=== PATIENT | female | born 1975 | race Caucasian/White ===

== ENCOUNTER 2017-12-05 16:29 | Inpatient (IN) | payer OTHER ==
[~2017-12-05] VITALS: Ht 157.5 cm; Wt 79.8 kg
[2017-12-05 16:46] VITALS: BP 101/66
--- NOTE | 2017-12-05 22:30 | NUR ---
PATIENT AMBULATED TO ER BED 2
--- NOTE | 2017-12-05 22:45 | NUR ---
42/F c/o abscess to labia since approximately 11/21/17. Pt has hx of abscess to labia. Pt reports the abscess progressively getting worse, more painful and firmer. Denies any painful or difficulty urinating. No open wound to labia, no drainage noted. AOX4, clear speech, ambulatory with a cane, steady gait. No vaginal bleeding. VSS.
--- NOTE | 2017-12-05 22:54 | NUR ---
Dr. Downing at bedside.
--- NOTE | 2017-12-05 22:55 | NUR ---
FEMALE CHAPERONED FOR DR. BARRETT DURING PATIENT EXAM
[2017-12-05] MEDS ORDERED: NACL 0.9% 1,000 ML IV ONE (23:00)
[2017-12-05] MEDS ORDERED: INSULIN HUMAN REGULAR 100 UNITS/ML 10 ML VIAL IVP ONE (23:00)
[2017-12-05] MEDS ORDERED: MORPHINE SULFATE 4 MG/ML SYR IVP ONE (23:00)
[2017-12-05] MEDS ORDERED: metroNIDAZOLE 500 MG/NS PREMIX 100 ML IV ONE (23:00)
[2017-12-05] MEDS ORDERED: LORazepam 2 MG/ML VIAL IVP PRN (23:15)
[2017-12-05] MEDS ORDERED: DEXTROSE 50% 50 ML SYR IVP PRN (23:15)
[2017-12-05] MEDS: NACL 0.9% 1,000 ML IV SCH (23:15)
[2017-12-05] MEDS ORDERED: ONDANSETRON 4 MG/2 ML VIAL IVP PRN (23:15)
[2017-12-05 23:31] LABS: BASOPHILS # (AUTO) 0.1 K/uL (0.00-0.22); BASOPHILS % (AUTO) 0.7 % (0.0-2.0); EOSINOPHILS # (AUTO) 0.2 K/uL (0-0.4); EOSINOPHILS % (AUTO) 1.3 % (0.0-4.0); HEMOGLOBIN 12.1 g/dL (12.0-16.0); LYMPHOCYTES # (AUTO) 1.3 K/uL (2.5-16.5); MEAN CORPUSCULAR HEMOGLOBIN 28 pg (27-31); MEAN CORPUSCULAR HGB CONC 33 g/dL (33-37); MEAN CORPUSCULAR VOLUME 84 fL (80-94); MONOCYTES # (AUTO) 0.6 K/uL (0.8-1.0); MONOCYTES % (AUTO) 3.8 % (1.7-9.3); NEUTROPHILS # (AUTO) 12.8 K/uL (1.8-7.7); NEUTROPHILS % (AUTO) 85.7 % (42.2-75.2); PLATELET COUNT (AUTO) 249 K/uL (140-450); RED CELL DISTRIBUTION WIDTH 11.8 % (11.6-13.7)
[2017-12-05] MEDS ORDERED: INSU100S5 IJ (23:40)
[2017-12-05] MEDS ORDERED: LISI2.5T12 PO (23:40)
[2017-12-05] MEDS ORDERED: INSU100S22 SUBQ (23:40)
[2017-12-05] MEDS ORDERED: GABA300C PO (23:40)
[2017-12-05 23:45] LABS: LYMPHOCYTES % (AUTO) 8.5 % (20.5-51.1)
[2017-12-05 23:47] LABS: ALBUMIN 3.2 g/dL (3.4-5.0); ANION GAP 17.1 (8-16); CARBON DIOXIDE 22.5 mmol/L (21-32); CREATININE 1.3 mg/dL (0.6-1.3); POTASSIUM 3.6 mmol/L (3.5-5.1); TOTAL BILIRUBIN 0.4 mg/dL (0.0-1.0)
[2017-12-06 00:35] VITALS: BP 124/73
--- NOTE | 2017-12-06 00:35 | NUR ---
RECEIVED PATIENT FROM ER. PATIENT AMBULATORY FROM [facility] TO BED. PATIENT AMBULATES WITH CANE. PATIENT DENIES PAIN. IV SITE PATENT AND INTACT. PATIENT A&OX4. NO SIGNS OR SYMPTOMS OF ACUTE DISTRESS NOTED. PATIENT ORIENTED TO UNIT. SAFETY MEASURES ENSURED. FALL PROTOCOL IN PLACE. WILL CONTINUE TO MONITOR.
--- NOTE | 2017-12-06 00:38 | NUR ---
Pt transferred to Med/Surg 119-A via gurney accompanied by EMT Devon and myself. All belongings sent with patient in belongings bag. Pt sent with IV fluids infusing.
[2017-12-06 00:42] LABS: APPEARANCE,URINE SL CLOUDY (CLEAR); BILIRUBIN,URINE NEGATIVE (NEGATIVE); BLOOD, URINE TRACE-I (NEGATIVE); COLOR,URINE YELLOW (YELLOW); LEUKOCYTE ESTERASE ,URINE NEGATIVE (NEGATIVE); NITRITE, URINE NEGATIVE (NEGATIVE); PH,URINE 5.5 (5.0-9.0); UGLUCOSE 3+ (NEGATIVE)
[2017-12-06 00:56] LABS: RBC,URINE 3-10 (FEW) /HPF (0-5); WBC,URINE 0-5 (RARE) /HPF (0-5); YEAST,URINE Many /HPF (None Seen)
[2017-12-06] MEDS: MORPHINE SULFATE 4 MG/ML SYR IVP PRN ×3 (02:24→16:38)
[2017-12-06] MEDS: NACL 0.9% 1,000 ML IV SCH ×2 (02:40→19:20)
--- NOTE | 2017-12-06 02:54 | NUR ---
PATIENT RESTING IN BED. NO SIGNS OR SYMPTOMS OF ACUTE DISTRESS NOTED. CALL LIGHT WITHIN REACH. WILL CONTINUE TO MONITOR.
[2017-12-06] MEDS ORDERED: PNEUMOCOCCAL VACCINE 23 MCG/0.5 ML VIAL IMVAC PRN (03:00)
[2017-12-06] MEDS ORDERED: INFLUENZA VIRUS VACCINE QUAD 0.5 ML SYR IMVAC PRN (03:00)
[2017-12-06] MEDS: BLOOD GLUCOSE MONITORING 1 DEV DEV FS SCH ×4 (06:30→21:26)
--- NOTE | 2017-12-06 07:21 | NUR ---
ENDORSED PLAN OF CARE TO AM RN. PATIENT IN STABLE CONDITION.
--- NOTE | 2017-12-06 07:25 | NUR ---
RECEIVED REPORT FROM COMMUNICATIONS PROFESSIONAL NURSE, PT IS A/OX4, AMBULATES WITH CANE, PT IS BLIND, PT HAS IV ON THE RIGHT AC, PATENT, INTACT, FLUSHING WELL, NO S/S OF RESPIRATORY DISTRESS OR DISCOMFORT NOTED, DISCUSSED PLAN OF CARE WITH PT, PT VERBALIZED UNDERSTANDING, SAFETY/FALL PRECAUTIONS ARE IN PLACE, CALL LIGHT IS WITHIN REACH, WILL CONTINUE TO MONITOR.
[2017-12-06 07:58] LABS: BASOPHILS # (AUTO) 0.1 K/uL (0.00-0.22); BASOPHILS % (AUTO) 0.7 % (0.0-2.0); EOSINOPHILS # (AUTO) 0.4 K/uL (0-0.4); EOSINOPHILS % (AUTO) 2.6 % (0.0-4.0); HEMATOCRIT 33.1 % (36-48); HEMOGLOBIN 11.1 g/dL (12.0-16.0); LYMPHOCYTES # (AUTO) 1.6 K/uL (2.5-16.5); LYMPHOCYTES % (AUTO) 10.8 % (20.5-51.1); MEAN CORPUSCULAR HEMOGLOBIN 28 pg (27-31); MEAN CORPUSCULAR HGB CONC 34 g/dL (33-37); MEAN CORPUSCULAR VOLUME 83 fL (80-94); MONOCYTES # (AUTO) 0.7 K/uL (0.8-1.0); MONOCYTES % (AUTO) 4.5 % (1.7-9.3); NEUTROPHILS # (AUTO) 11.9 K/uL (1.8-7.7); NEUTROPHILS % (AUTO) 81.4 % (42.2-75.2); PLATELET COUNT (AUTO) 240 K/uL (140-450); RED BLOOD CELL COUNT(AUTO) 3.98 MIL/uL (4.20-5.40); RED CELL DISTRIBUTION WIDTH 11.9 % (11.6-13.7); WHITE BLOOD COUNT (AUTO) 14.7 K/uL (4.8-10.8)
[2017-12-06 08:00] VITALS: BP 97/62
[2017-12-06 08:29] LABS: ANION GAP 14.2 (8-16); CARBON DIOXIDE 23.1 mmol/L (21-32); CREATININE 0.9 mg/dL (0.6-1.3); POTASSIUM 3.3 mmol/L (3.5-5.1)
[2017-12-06] MEDS: MORPHINE SULFATE 2 MG/ML SYR IVP PRN ×2 (09:03→21:02)
[2017-12-06] MEDS: ENOXAPARIN 30 MG/0.3 ML SYR SUBQ SCH (09:07)
[2017-12-06] MEDS ORDERED: FLUCONAZOLE 100 MG TAB PO SCH (09:30)
[2017-12-06] MEDS ORDERED: POTASSIUM CHLORIDE 10 MEQ TABER PO SCH (09:30)
--- NOTE | 2017-12-06 10:20 | NUR ---
PT RESTING IN BED, TALKING ON HER CELL PHONE, CALL LIGHT IS WITHIN REACH.
[2017-12-06] MEDS ORDERED: BLOOD GLUCOSE MONITORING 1 DEV DEV FS STA (10:25)
[2017-12-06] MEDS: LEVOFLOXACIN 750 MG/D5W PREMIX 150 ML IV SCH (10:30)
[2017-12-06] MEDS: INSULIN LISPRO SLIDING SCALE 100 UNITS/ML VIAL SUBQ PRN ×2 (10:36→13:32)
--- NOTE | 2017-12-06 10:46 | NUR ---
PATIENT HAS BEEN SCREENED AND CATEGORIZED HIGH NUTRITION RISK. PATIENT WILL BE SEEN WITHIN 1-2 DAYS OF ADMISSION. 12/06/17 - 12/07/[address]
[2017-12-06] MEDS: metroNIDAZOLE 500 MG/NS PREMIX 100 ML IV SCH ×2 (12:30→21:01)
--- NOTE | 2017-12-06 15:16 | NUR ---
CM NOTE INITIAL REVIEW FAXED TO [facility] [phone] ALEX # [phone]
[2017-12-06 16:00] VITALS: BP 96/69
--- NOTE | 2017-12-06 19:15 | NUR ---
ENDORSED PT TO GENERAL ACCOUNTANT NURSE FOR CONTINUITY OF CARE, PT STABLE AT THIS TIME.
--- NOTE | 2017-12-06 19:16 | NUR ---
RECD. RESTING IN BED, AWAKE, A/OX4, RESPIRATION EVEN AND UNLABORED. IV OF NS AT 100ML/HR INFUSING, RIGHT AC G20. WATCHING TV. PLAN OF CARE FOR THE SHIFT DISCUSSED. VERBALIZED UNDERSTANDING. PAIN IN THE ABSCESS 12/07, WILL CALL NURSE WHEN PAIN INCREASES. NPO PAST MIDNIGHT. ON IV ANTIBIOTICS.
[2017-12-06] MEDS ORDERED: NICOTINE TRANSD SYS 14 MG/24 HR PATCH TD SCH (21:50)
[2017-12-07] VITALS: BP 124/75
[2017-12-07] MEDS: MORPHINE SULFATE 2 MG/ML SYR IVP PRN (01:32)
[2017-12-07] MEDS: NACL 0.9% 1,000 ML IV SCH ×2 (05:15→15:15)
[2017-12-07 08:00] VITALS: BP 115/69
[2017-12-07] MEDS: ENOXAPARIN 30 MG/0.3 ML SYR SUBQ SCH (09:00)
[2017-12-07] MEDS ORDERED: NICOTINE TRANSD SYS 14 MG/24 HR PATCH TD SCH (09:00)
[2017-12-07] MEDS: LEVOFLOXACIN 750 MG/D5W PREMIX 150 ML IV SCH (09:30)
--- NOTE | 2017-12-07 09:53 | NUR ---
ALL AM SCHEDULED MEDICATIONS CHARTED ON PAPER AND IN CHART D/T [facility] NOT WORKING. PATIENT WAS GIVEN MORNING MEDICATIONS. PATIENT LOVENOX 30MG SQ WAS GIVEN D/T PATIENT SURGERY BEING CANCELLED. ALL NEEDS MET AT THIS TIME.
--- NOTE | 2017-12-07 10:25 | NUR ---
WOUND CARE EVALUATION NOTE: REASON FOR WOUND EVALUATION: LABIA CELLULITIS COMPLETE SKIN ASSESSMENT DONE ON THIS 42 Y/O FEMALE PATIENT FROM HOME TO [facility], WITH INITIAL DIAGNOSIS OF C/O PAIN AND SWELLING FROM LABIA. PAST MEDICAL HISTORY INCLUDE HX OF LABIA I&D, DM. ALL ABOVE INFORMATION WAS OBTAINED FROM THE ADMISSION H&P AND PT. PT IS AAX4. LABS ARE WBC 14.7, H/H 11.1/33.1, GLUCOSE 311, ALBUMIN 3.2 PT/INR 10.8/1.0 AND PTT 27.4 CURRENT MEDS INCLUDE METRONIDAZOLE, LEVOFLOXACIN, INSULIN AND LORAZEPAM. PT SKIN IS WARM AND DRY TO TOUCH, BLE NO EDEMA, NO HAIR GROWTH, PEDAL PULSES PRESENT AND NORMAL,BILATERAL HEELS THICK CALLUS, CAPILLARY REFILLED < 2 SEC. PLAN OF CARE DISCUSS WITH PT. AND PRIMARY RN, PT. VERBALIZES UNDERSTANDS. INTEGUMENTARY: -LEFT LABIA MAJOR [id number] SKIN INTACT, SWELLING, TENDER AND PAINFUL TO TOUCH, PAIN LEVEL 3/10 -LEFT HEEL 2X0.2 CM DEPTH UTD, BROWN SCAB DIABETIC ULCER, DRYNESS WITH THICK CALLUS SURROUNDING THE SCAB -RIGHT TOE 0.5X0.5 CM DEPTH UTD, DIABETIC ULCER WOUND BED LIGHT BROWN ,DRY, NO ODOR RECOMMENDATIONS: -CLEANSE PERINEUM AREA WITH SOAP AND WATER , PAT DRY, APPLY WARM COMPRESS BID WC -CLEANSE LEFT HEEL AND RIGHT TOE DIABETIC ULCERS WITH NS. PAT DRY,PAINT WITH BETADINE SOLUTION QD AND LEAVE IT OPEN TO AIR -KEEP SKIN CLEAN AND DRY AT ALL TIMES. -PT TO ARRANGE AND FOLLOW UP OUTPATIENT PODIATRY VISIT RECOMMENDATIONS DISCUSSED WITH PRIMARY RN AND DR. IVERSON WILL FOLLOW UP PATIENT PRN. PLEASE CONTACT WOUND CARE NURSE FOR ANY QUESTIONS AND CHANGES IN WOUND CONDITION.
[2017-12-07 10:54] LABS: ALBUMIN 2.5 g/dL (3.4-5.0); ANION GAP 16.3 (8-16); CARBON DIOXIDE 20.6 mmol/L (21-32); CREATININE 0.8 mg/dL (0.6-1.3); POTASSIUM 3.9 mmol/L (3.5-5.1); TOTAL BILIRUBIN 0.5 mg/dL (0.0-1.0)
[2017-12-07] MEDS: BLOOD GLUCOSE MONITORING 1 DEV DEV FS SCH ×2 (11:30→16:30)
--- NOTE | 2017-12-07 11:50 | NUR ---
SPOKE WITH DR IVERSON REGARDING PATIENT TO HAVE DIET, DR SORENSENED [facility] DIET D/T PATIENT NOT HAVING SURGERY TODAY.
[2017-12-07] MEDS: metroNIDAZOLE 500 MG/NS PREMIX 100 ML IV SCH (12:55)
[2017-12-07] MEDS: INSULIN LISPRO SLIDING SCALE 100 UNITS/ML VIAL SUBQ PRN (12:57)
--- NOTE | 2017-12-07 12:58 | NUR ---
ADMINISTERED SCHEDULED MEDICATIONS. BS IS 244 INSULIN COVERAGE PER PROTOCOL WAS GIVEN 4 UNITS OF HUMALOG SQ ON THE RIGHT UPPER ARM. ALL NEEDS MET AT THIS TIME.
[2017-12-07] MEDS: MORPHINE SULFATE 4 MG/ML SYR IVP PRN (13:23)
[2017-12-07 13:33] LABS: HEMATOCRIT 33.7 % (36-48); HEMOGLOBIN 11.1 g/dL (12.0-16.0); MEAN CORPUSCULAR HEMOGLOBIN 28 pg (27-31); MEAN CORPUSCULAR HGB CONC 33 g/dL (33-37); MEAN CORPUSCULAR VOLUME 83 fL (80-94); RED BLOOD CELL COUNT(AUTO) 4.05 MIL/uL (4.20-5.40); WHITE BLOOD COUNT (AUTO) 15.7 K/uL (4.8-10.8)
[2017-12-07 13:34] LABS: PLATELET COUNT (AUTO) 264 K/uL (140-450); RED CELL DISTRIBUTION WIDTH 11.9 % (11.6-13.7)
[2017-12-07 13:35] LABS: BASOPHILS # (AUTO) 0.2 K/uL (0.00-0.22); BASOPHILS % (AUTO) 1.4 % (0.0-2.0); EOSINOPHILS # (AUTO) 0.1 K/uL (0-0.4); EOSINOPHILS % (AUTO) 0.9 % (0.0-4.0); LYMPHOCYTES % (AUTO) 6.5 % (20.5-51.1); MONOCYTES # (AUTO) 0.6 K/uL (0.8-1.0); MONOCYTES % (AUTO) 3.9 % (1.7-9.3); NEUTROPHILS # (AUTO) 13.8 K/uL (1.8-7.7); NEUTROPHILS % (AUTO) 87.3 % (42.2-75.2)
--- NOTE | 2017-12-07 13:55 | NUR ---
PATIENT STATED 7/10 LABIA PAIN, AND INDICATED THAT PAIN PRN MED DOES NOT HELP VERY MUCH. PATIENT WAS ASKED AGAIN IF SHE WOULD LIKE ANOTHER PAIN MEDICATION. PATIENT STATED SHE WILL LET RN KNOW IF SHE WOULD LIKE TO ASK DR FOR ANOTHER FORM OF PAIN MEDICATION. PATIENT WAS GIVEN COMFORT MEASURES, REPOSITIONED, AND LIGHTS WERE TURNED OFF. ALL NEEDS MET AT THIS TIME.
--- NOTE | 2017-12-07 14:06 | NUR ---
CM NOTE CONCURRENT REVIEW FAXED TO [facility] [phone] ALEX # [phone]
--- NOTE | 2017-12-07 15:09 | NUR ---
12/07/2017 RD INITIAL ASSESSMENT COMPLETED 1. PT TO CONSUME >75% ESTIMATED ENERGY AND PROTEIN NEEDS. 2. PT TO CONTINUE WITH 60 GM CCHO DIET WITH GOOD TOLERANCE DIETITIAN WILL MONITOR PO INTAKE, NUTRITION-RELATED LABS TRENDING WNL, SKIN INTEGRITY, WEIGHTS, GI FUNCTION. DISCHARGE PLAN:CURRENT DIET REFLECTS PAST MEDICAL HISTORY AND IS APPROPRIATE FOR DISCHARGE. ANTOINE SANDERS RD
[2017-12-07 16:00] VITALS: BP 104/65
--- NOTE | 2017-12-07 17:37 | NUR ---
PATIENT C/O LEFT SIDED CHEST PAIN THAT RADIATED TO BACK, OFFERED PRN PAIN MEDICATION HOWEVER PATIENT REFUSED AT THIS TIME. DR REHMAN WAS PAGED.
--- NOTE | 2017-12-07 17:45 | NUR ---
DR REHMAN CALLED BACK AND WAS NOTIFIED OF PATIENT C/O LEFT SIDED CHEST PAIN THAT RADIATED TO BACK, DR IS AWARE PATIENT REFUSED PRN PAIN MEDICATION. IS TO PLACE ORDERS.
[2017-12-07] MEDS ORDERED: NITROGLYCERIN 0.4 MG TAB SL PRN (17:55)
--- NOTE | 2017-12-07 18:45 | NUR ---
PATIENT SHOWS NO S/S OF ACUTE DISTRESS AT THIS TIME, FAMILY AT BEDSIDE.
--- NOTE | 2017-12-07 19:15 | NUR ---
GAVE PATIENT REPORT AT BEDSIDE TO NIGHT NURSE. PATIENT ENDORSED IN STABLE CONDITION.
--- NOTE | 2017-12-07 19:16 | NUR ---
RECD. RESTING IN BED, AWAKE, A/OX4. RESPIRATION EVEN AND UNLABORED. IV OF NS AT 100 ML/HR INFUSING, RIGHT AC G20. VERBALIZED FRUSTRATION THAT I & D WAS NOT DONE. STATED THIS IS THE SECOND TIME SHE HAD THIS ABSCESS AND DURING THE FIRST TIME, IN [facility] IT WAS OPENED TO HEAL. EXPLAINED THAT THE PLAN IS TO TREAT IT WITH ANTIBIOTICS. SHOWED HER AREA OF ABSCESS AND STATED "LOOK IT IS GETTING BIGGER AND FEEL IT, GETTING HARDER. ADVISED TO SPEAK WITH DR. IVERSON TOMORROW DURING HIS ROUNDS. AGREED. PAIN IN THE AREA 12/07, WILL MEDICATE ORDERED.
--- NOTE | 2017-12-07 20:30 | NUR ---
SANDWICH FOR SNACK WAS GIVEN REQUESTED.
--- NOTE | 2017-12-07 21:00 | NUR ---
WENT TO PATIENT'S ROOM AND FOUND ALREADY DRESSED IN PANTS WITH JACKET ON AND ALREADY CARRYING ALL HER BELONGINGS IN A BAG, READY TO WALK OUT OF THE ROOM WITH A CANE. WHEN ASKED WHERE IS SHE GOING STATED "I WILL GO TO [facility]." EXPLAINED THAT SHE HAS TO SIGN AMA PAPERS BUT REFUSED TO SIGN.
--- NOTE | 2017-12-07 21:05 | NUR ---
FOLLOWED PATIENT WALKING OUT OF THE ROOM, ADVISED TO STOP FOR A WHILE TO TAKE OUT IV LINE BUT STATED "I TOOK IT OUT, IT'S ON THE FLOOR". CONTINUED WALKING, REQUESTED WIND [employer]URBINE MECHANIC TOBY TO CALL SECURITY.
--- NOTE | 2017-12-07 21:10 | NUR ---
WENT OUT OF HOSPITAL LOBBY WITH PATIENT, SECURITY AKBAR CAME AND SPOKE WITH PATIENT TO SIGN AMA PAPERS BUT KEEP ON WALKING AND IGNORE NAOMIE. PATIENT STATED SON IS COMING TO TAKE HER.
--- NOTE | 2017-12-07 21:20 | NUR ---
INFORMED CHARGE NURSE THAT PATIENT WENT OUT ALREADY OF THE HOSPITAL.
--- NOTE | 2017-12-07 22:00 | NUR ---
RAILROAD SIGNAL AND SWITCH OPERATOR [facility] AWARE. DR. IVERSON INFORMED.
[2017-12-08] MEDS ORDERED: MILD SOAP AND WATER TP SCH (01:00)
[2017-12-08] MEDS ORDERED: NACL 0.9% IRR 250 ML BOTTLE IR SCH (13:00)
== END 2017-12-07 21:15 | disposition left against medical advice (07) | DRG 720 ==
LOC: MED 16:29 → MTU 23:32
PROVIDERS: ADMIT Hospitalist; ATTEND Hospitalist
DX: A41.9 Sepsis, unspecified organism (principal); E11.10 Type 2 diabetes mellitus with ketoacidosis without coma; E11.40 Type 2 diabetes mellitus with diabetic neuropathy, unspecified; E87.1 Hypo-osmolality and hyponatremia; N76.4 Abscess of vulva; E11.65 Type 2 diabetes mellitus with hyperglycemia; N76.0 Acute vaginitis; L03.315 Cellulitis of perineum; E87.6 Hypokalemia; E66.9 Obesity, unspecified; E78.00 Pure hypercholesterolemia, unspecified; E78.5 Hyperlipidemia, unspecified; Z68.32 Body mass index [BMI] 32.0-32.9, adult; Z79.4 Long term (current) use of insulin; Z91.19 Patient's noncompliance with other medical treatment and regimen; Z87.891 Personal history of nicotine dependence
CPT/HCPCS: 36415; 76856; 80048; 80053; 81001; 82948; 84484; 84702; 85025; 87040; 87081; 87086; 96361; 96374; 96375; 99285; J1650; J1815; J1956; J2270; J3490; J7030; Q0092